=== PATIENT | male | born 1985 | race Caucasian/White ===

== ENCOUNTER 2018-05-26 07:04 | Emergency (ER) | payer OTHER ==
[2018-05-26 07:10] VITALS: TEMP 98.2; BMI 40.6
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
[2018-05-26] MEDS ORDERED: guaiFENesin 600 MG TABLET.ER (FP) PO STA (07:35)
[2018-05-26] MEDS ORDERED: BUPIVACAINE HCL/PF (5 MG/ML) 30 ML VIAL IJ STA (07:40)
[2018-05-26] MEDS ORDERED: METOCLOPRAMIDE HCL 10 MG TABLET (FP) PO ONE ×2 (07:40→07:51)
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
[2018-05-26] MEDS ORDERED: BUPIVACAINE HCL/PF 0.5% (5MG/ML) 10 ML VIAL ONE (07:50)
[2018-05-26 08:11] LABS: BASO % 0.6 % (0-2.0); EOS % 0.8 % (0-4.5); HEMATOCRIT 39.9 % (35.4-49); MCH 28.1 pg (25.7-33.7); MCHC 32.7 g/dl (32.0-35.9); MEAN CELL VOLUME 85.7 fl (80-96); MEAN PLT VOLUME 7.6 fl (7.5-11.1); MONO % 8.2 % (3.8-10.2); NEUT % 78.4 % (42.8-82.8); PLATELET COUNT 381 K/MM3 (134-434); RBC 4.65 M/mm3 (4.00-5.60); RDW 12.6 % (11.9-15.9); WHITE BLOOD COUNT 15.6 K/mm3 (4.0-10.0)
[2018-05-26 08:38] LABS: ALBUMIN 3.3 g/dl (3.4-5.0); ALK PHOS 91 U/L (45-117); ANION GAP 9 MMOL/L (8-16); BILIRUBIN,TOTAL 0.5 mg/dL (0.2-1); BLOOD UREA NITROGEN 11 mg/dL (7-18); CALCIUM 8.5 mg/dL (8.5-10.1); CHLORIDE 108 mmol/L (98-107); CO2 23 mmol/L (21-32); CREATININE 1.1 mg/dL (0.55-1.3); GLUCOSE,RANDOM 111 mg/dL (74-106); POTASSIUM 3.7 mmol/L (3.5-5.1); SGOT/AST 29 U/L (15-37); SGPT/ALT 35 U/L (13-61); SODIUM 140 mmol/L (136-145); TOT PROT 7.4 g/dl (6.4-8.2)
[2018-05-26] MEDS ORDERED: KETOROLAC TROMETHAMINE 30 MG/1 ML VIAL IVPUSH ONE (11:18)
[2018-05-26] MEDS ORDERED: KETOROLAC TROMETHAMINE 30 MG/1 ML VIAL ONE (11:44)
[2018-05-26 11:57] VITALS: BP 128/75; PULSE 17
== END 2018-05-26 11:53 | disposition home or self-care (01) ==
LOC: JER 07:04
PROC: 3E0 Administration, Physiological Systems and Anatomical Regions, Introduction (ICD-10-PCS; principal; 2018-05-26)
DX: R51 Headache (principal)
CPT/HCPCS: 36415; 70470-TC; 80053; 80307; 85025; 99282-25

== ENCOUNTER 2022-06-10 11:25 | Inpatient (IN) | payer OTHER ==
[2022-06-10 11:47] VITALS: BMI 56.2
[2022-06-10] MEDS ORDERED: ACETAMINOPHEN 1000 MG/100 ML BAG IVPB ONE (12:57)
[2022-06-10] MEDS ORDERED: ACETAMINOPHEN INJECTION 100 ML IVPB ONE ×2 (13:33→20:15)
[2022-06-10 13:48] LABS: BASO % 0.8 % (0-2.0); EOS % 0.3 % (0-4.5); HEMATOCRIT 40.8 % (35.4-49); HEMOGLOBIN 12.9 GM/dL (11.7-16.9); LYMPH % 6.6 % (8-40); MCH 26.2 pg (25.7-33.7); MCHC 31.5 g/dl (32.0-35.9); MEAN CELL VOLUME 82.9 fl (80-96); MEAN PLT VOLUME 7.7 fl (7.5-11.1); MONO % 5.4 % (3.8-10.2); NEUT % 86.9 % (42.8-82.8); PLATELET COUNT 376 10^3/uL (134-434); RBC 4.92 M/mm3 (4.00-5.60); RDW 17.3 % (11.9-15.9); WHITE BLOOD COUNT 10.6 K/mm3 (4.0-10.0)
[2022-06-10 14:06] LABS: INR 1.52 (0.83-1.09); PROTHROMBIN TIME (PATIENT) 17.6 SEC (9.7-13.0)
[2022-06-10 14:09] LABS: ACTIVATED PTT 33.8 SECONDS (25.2-36.5)
[2022-06-10 14:12] LABS: CALCIUM 8.9 mg/dL (8.5-10.1)
[2022-06-10 14:13] LABS: BLOOD UREA NITROGEN 9.8 mg/dL (7-18)
[2022-06-10 14:16] LABS: CREATININE 1.3 mg/dL (0.55-1.3)
[2022-06-10 14:17] LABS: BILIRUBIN,TOTAL 1.6 mg/dL (0.2-1); TOT PROT 7.4 g/dl (6.4-8.2)
[2022-06-10] MEDS ORDERED: FUROSEMIDE 40 MG/4 ML INJECTABLE VIAL IVPUSH ONE ×3 (15:42→18:15)
[2022-06-10] MEDS ORDERED: FUROSEMIDE 40 MG/4 ML INJECTABLE VIAL ONE ×2 (15:54→17:51)
[2022-06-10] MEDS ORDERED: ENOXAPARIN NA (PORCINE) 40 MG/0.4 ML DISP.SYRIN SQ SCH (16:45)
[2022-06-10] MEDS ORDERED: ENOXAPARIN NA (PORCINE) 40 MG/0.4 ML DISP.SYRIN SQ ONE (18:21)
[2022-06-10 18:57] LABS: PHOSPHOROUS 3.7 mg/dL (2.5-4.9)
[2022-06-10 20:09] LABS: COCAINE, UR NEGATIVE (NEGATIVE); OPIATES, URI NEGATIVE (NEGATIVE); URINE AMPHETAMINES NEGATIVE (NEGATIVE)
[2022-06-10 20:10] LABS: PHENCYCLIDINE,URINE NEGATIVE (NEGATIVE); URINE BENZODIAZEPINES NEGATIVE (NEGATIVE)
[2022-06-10 20:14] LABS: METHADONE, UR NEGATIVE (NEGATIVE); URINE BARBITURATES NEGATIVE (NEGATIVE)
[2022-06-10] MEDS: ACETAMINOPHEN 1000 MG/100 ML BAG IVPB PRN (20:24)
[2022-06-11] MEDS ORDERED: ACETAMINOPHEN INJECTION 100 ML IVPB ONE ×2 (02:44→09:43)
[2022-06-11] MEDS: ACETAMINOPHEN 1000 MG/100 ML BAG IVPB PRN ×3 (02:53→17:06)
[2022-06-11 06:49] LABS: BASO % 0.9 % (0-2.0); EOS % 0.8 % (0-4.5); HEMATOCRIT 34.2 % (35.4-49); HEMOGLOBIN 11.1 GM/dL (11.7-16.9); LYMPH % 10.7 % (8-40); MCH 26.7 pg (25.7-33.7); MCHC 32.5 g/dl (32.0-35.9); MEAN CELL VOLUME 82.1 fl (80-96); MONO % 8.1 % (3.8-10.2); NEUT % 79.5 % (42.8-82.8); PLATELET COUNT 337 10^3/uL (134-434); RBC 4.16 M/mm3 (4.00-5.60); RDW 17.6 % (11.9-15.9); WHITE BLOOD COUNT 9.1 K/mm3 (4.0-10.0)
[2022-06-11 07:00] LABS: CALCIUM 8.4 mg/dL (8.5-10.1)
[2022-06-11 07:01] LABS: BLOOD UREA NITROGEN 9.6 mg/dL (7-18); MAGNESIUM 1.8 mg/dL (1.8-2.4)
[2022-06-11 07:04] LABS: CREATININE 1.2 mg/dL (0.55-1.3)
[2022-06-11] MEDS ORDERED: KCL 10 MEQ IVPB 10 MEQ/100 ML INFUS.BAG IVPB SCH (07:30)
[2022-06-11] MEDS: FUROSEMIDE 40 MG/4 ML INJECTABLE VIAL IVPUSH SCH (09:41)
[2022-06-11] MEDS: ENOXAPARIN NA (PORCINE) 40 MG/0.4 ML DISP.SYRIN SQ SCH ×2 (09:41→21:39)
[2022-06-11] MEDS ORDERED: FUROSEMIDE 40 MG/4 ML INJECTABLE VIAL ONE (09:43)
[2022-06-11] MEDS ORDERED: ENOXAPARIN NA (PORCINE) 40 MG/0.4 ML DISP.SYRIN SQ ONE (09:43)
[2022-06-11] MEDS ORDERED: KCL 10 MEQ IVPB 30 MEQ/300 ML INFUS.BAG IVPB ONE (09:44)
[2022-06-11] MEDS ORDERED: POTASSIUM CHLORIDE TABS 20 MEQ TABLET.ER (FP) PO ONE ×3 (09:52→17:00)
[2022-06-11] MEDS ORDERED: MAGNESIUM SULF 50% (8.12 MEQ/2 ML-1 GM VIAL) IVPB ONE (10:00)
[2022-06-11] MEDS ORDERED: MAGNESIUM 1GM/D5W - 1 GM/100 ML IVPB IVPB ONE (10:34)
[2022-06-11] MEDS ORDERED: MAGNESIUM SULFATE IN WATER 2 GM/50 ML IVPB IVPB ONE (10:44)
[2022-06-11] MEDS ORDERED: MAGNESIUM 2GM/50ML STERILE WATER IVPB IVPB ONE (10:45)
[2022-06-11] MEDS ORDERED: ALBUTEROL SO4 HFA INHALER IH PRN (13:58)
[2022-06-11] MEDS ORDERED: FUROSEMIDE 40 MG/4 ML INJECTABLE VIAL IVPUSH ONE (16:35)
[2022-06-11] MEDS: MINERAL OIL/PET HY-PHL TOPICAL OINTMENT 454 GM JAR TP SCH (21:39)
[2022-06-12] MEDS: ACETAMINOPHEN 1000 MG/100 ML BAG IVPB PRN (00:40)
[2022-06-12 07:32] LABS: HEMATOCRIT 36.6 % (35.4-49); HEMOGLOBIN 11.7 GM/dL (11.7-16.9); MCH 26.7 pg (25.7-33.7); MCHC 32.1 g/dl (32.0-35.9); MEAN CELL VOLUME 83.2 fl (80-96); MEAN PLT VOLUME 7.6 fl (7.5-11.1); PLATELET COUNT 343 10^3/uL (134-434); RDW 17.8 % (11.9-15.9); WHITE BLOOD COUNT 8.5 K/mm3 (4.0-10.0)
[2022-06-12 08:00] LABS: ALBUMIN 2.8 g/dl (3.4-5.0); BLOOD UREA NITROGEN 10.5 mg/dL (7-18); CALCIUM 8.5 mg/dL (8.5-10.1)
[2022-06-12 08:03] LABS: CREATININE 1.3 mg/dL (0.55-1.3)
[2022-06-12 08:05] LABS: BILIRUBIN,TOTAL 1.6 mg/dL (0.2-1); TOT PROT 6.9 g/dl (6.4-8.2)
[2022-06-12] MEDS: ENOXAPARIN NA (PORCINE) 40 MG/0.4 ML DISP.SYRIN SQ SCH ×2 (09:46→21:22)
[2022-06-12] MEDS: FUROSEMIDE 40 MG/4 ML INJECTABLE VIAL IVPUSH SCH ×2 (09:46→15:42)
[2022-06-12] MEDS: MINERAL OIL/PET HY-PHL TOPICAL OINTMENT 454 GM JAR TP SCH ×3 (10:00→21:21)
[2022-06-12] MEDS ORDERED: FUROSEMIDE 40 MG/4 ML INJECTABLE VIAL IVPUSH SCH ×2 (14:00)
[2022-06-12] MEDS: PANTOPRAZOLE 40 MG TABLET PO SCH (15:42)
[2022-06-12] MEDS ORDERED: oxyCODONE HCL 5 MG TABLET PO ONE (20:48)
[2022-06-13] MEDS: FUROSEMIDE 40 MG/4 ML INJECTABLE VIAL IVPUSH SCH ×4 (06:31→15:43)
[2022-06-13] MEDS: ENOXAPARIN NA (PORCINE) 40 MG/0.4 ML DISP.SYRIN SQ SCH ×2 (09:24→21:28)
[2022-06-13] MEDS: PANTOPRAZOLE 40 MG TABLET PO SCH (09:24)
[2022-06-13] MEDS: MINERAL OIL/PET HY-PHL TOPICAL OINTMENT 454 GM JAR TP SCH ×2 (09:25→21:28)
[2022-06-13] MEDS: ACETAMINOPHEN 1000 MG/100 ML BAG IVPB PRN ×2 (12:20→20:42)
[2022-06-13] MEDS: FAMOTIDINE 20 MG TABLET PO SCH (12:20)
[2022-06-13 13:10] LABS: CALCIUM 8.9 mg/dL (8.5-10.1)
[2022-06-13 13:14] LABS: CREATININE 1.2 mg/dL (0.55-1.3)
[2022-06-13] MEDS ORDERED: POTASSIUM CHLORIDE TABS 20 MEQ TABLET.ER (FP) PO ONE (14:00)
[2022-06-13] MEDS: CARVEDILOL 3.125 MG TABLET (FP) PO SCH (21:28)
[2022-06-14] MEDS: FUROSEMIDE 40 MG/4 ML INJECTABLE VIAL IVPUSH SCH ×3 (06:40→15:46)
[2022-06-14 08:04] LABS: BLOOD UREA NITROGEN 11.9 mg/dL (7-18)
[2022-06-14 08:07] LABS: CALCIUM 8.5 mg/dL (8.5-10.1); CREATININE 1.2 mg/dL (0.55-1.3)
[2022-06-14 08:08] LABS: MAGNESIUM 1.8 mg/dL (1.8-2.4)
[2022-06-14] MEDS: ENOXAPARIN NA (PORCINE) 40 MG/0.4 ML DISP.SYRIN SQ SCH ×2 (09:10→21:10)
[2022-06-14] MEDS: CARVEDILOL 3.125 MG TABLET (FP) PO SCH ×2 (09:11→21:10)
[2022-06-14] MEDS: MINERAL OIL/PET HY-PHL TOPICAL OINTMENT 454 GM JAR TP SCH ×2 (09:11→21:11)
[2022-06-14] MEDS: FAMOTIDINE 20 MG TABLET PO SCH (09:11)
[2022-06-14] MEDS: PANTOPRAZOLE 40 MG TABLET PO SCH (09:11)
[2022-06-14] MEDS ORDERED: POTASSIUM CHLORIDE TABS 20 MEQ TABLET.ER (FP) PO ONE (09:34)
[2022-06-14] MEDS ORDERED: MAGNESIUM 1GM/D5W 100ML - 100 ML IVPB IVPB ONE (09:44)
[2022-06-14] MEDS ORDERED: ACETAMINOPHEN 1000 MG/100 ML BAG IVPB ONE (21:09)
[2022-06-15] MEDS: FUROSEMIDE 40 MG/4 ML INJECTABLE VIAL IVPUSH SCH ×2 (06:56→13:52)
[2022-06-15 08:31] LABS: HEMATOCRIT 37.3 % (35.4-49); HEMOGLOBIN 11.8 GM/dL (11.7-16.9); MCH 26.5 pg (25.7-33.7); MCHC 31.6 g/dl (32.0-35.9); MEAN PLT VOLUME 8.2 fl (7.5-11.1); PLATELET COUNT 343 10^3/uL (134-434); RBC 4.44 M/mm3 (4.00-5.60); RDW 18.2 % (11.9-15.9)
[2022-06-15 09:13] LABS: ALBUMIN 2.9 g/dl (3.4-5.0); CALCIUM 8.8 mg/dL (8.5-10.1); MAGNESIUM 1.9 mg/dL (1.8-2.4)
[2022-06-15 09:14] LABS: BLOOD UREA NITROGEN 15.9 mg/dL (7-18)
[2022-06-15 09:16] LABS: CREATININE 1.3 mg/dL (0.55-1.3); PHOSPHOROUS 4.3 mg/dL (2.5-4.9)
[2022-06-15 09:18] LABS: BILIRUBIN,TOTAL 1.3 mg/dL (0.2-1); TOT PROT 7.1 g/dl (6.4-8.2)
[2022-06-15] MEDS: PANTOPRAZOLE 40 MG TABLET PO SCH (10:40)
[2022-06-15] MEDS: FAMOTIDINE 20 MG TABLET PO SCH (10:40)
[2022-06-15] MEDS: CARVEDILOL 3.125 MG TABLET (FP) PO SCH ×2 (10:40→22:05)
[2022-06-15] MEDS: ENOXAPARIN NA (PORCINE) 40 MG/0.4 ML DISP.SYRIN SQ SCH ×2 (10:40→22:05)
[2022-06-15] MEDS: MINERAL OIL/PET HY-PHL TOPICAL OINTMENT 454 GM JAR TP SCH ×3 (10:41→23:10)
[2022-06-15] MEDS: POTASSIUM CHLORIDE TABS 20 MEQ TABLET.ER (FP) PO SCH (12:32)
[2022-06-15] MEDS: ACETAMINOPHEN 1000 MG/100 ML BAG IVPB PRN ×2 (14:04→21:57)
[2022-06-15] MEDS ORDERED: MAGNESIUM SULF 50% (8.12 MEQ/2 ML-1 GM VIAL) IVPB ONE (18:30)
[2022-06-15] MEDS ORDERED: FAMOTIDINE 20 MG TABLET PO PRN (18:47)
[2022-06-16] MEDS: FUROSEMIDE 40 MG/4 ML INJECTABLE VIAL IVPUSH SCH ×2 (06:24→13:26)
[2022-06-16 08:42] LABS: HEMOGLOBIN 11.3 GM/dL (11.7-16.9); MCH 26.8 pg (25.7-33.7); MCHC 32.4 g/dl (32.0-35.9); MEAN CELL VOLUME 82.8 fl (80-96); MEAN PLT VOLUME 7.9 fl (7.5-11.1); PLATELET COUNT 316 10^3/uL (134-434); RBC 4.22 M/mm3 (4.00-5.60); RDW 18.1 % (11.9-15.9); WHITE BLOOD COUNT 8.5 K/mm3 (4.0-10.0)
[2022-06-16 09:17] LABS: ALBUMIN 2.8 g/dl (3.4-5.0); BLOOD UREA NITROGEN 16.4 mg/dL (7-18); CALCIUM 8.6 mg/dL (8.5-10.1); MAGNESIUM 2.1 mg/dL (1.8-2.4)
[2022-06-16] MEDS: POTASSIUM CHLORIDE TABS 20 MEQ TABLET.ER (FP) PO SCH (09:18)
[2022-06-16] MEDS: ENOXAPARIN NA (PORCINE) 40 MG/0.4 ML DISP.SYRIN SQ SCH ×2 (09:18→22:01)
[2022-06-16] MEDS: CARVEDILOL 3.125 MG TABLET (FP) PO SCH (09:19)
[2022-06-16] MEDS: MINERAL OIL/PET HY-PHL TOPICAL OINTMENT 454 GM JAR TP SCH ×2 (09:19→21:59)
[2022-06-16 09:20] LABS: CREATININE 1.2 mg/dL (0.55-1.3)
[2022-06-16 09:21] LABS: BILIRUBIN,TOTAL 1.2 mg/dL (0.2-1); TOT PROT 6.8 g/dl (6.4-8.2)
[2022-06-16] MEDS ORDERED: ACETAMINOPHEN 325 MG TABLET (FP) PO PRN (18:00)
[2022-06-16] MEDS ORDERED: ALBUTEROL SO4 HFA INHALER IH PRN (19:09)
[2022-06-16] MEDS: CARVEDILOL 6.25 MG TABLET (FP) PO SCH (22:00)
[2022-06-17] MEDS: FUROSEMIDE 40 MG/4 ML INJECTABLE VIAL IVPUSH SCH ×2 (06:43→13:17)
[2022-06-17 09:13] LABS: BLOOD UREA NITROGEN 18.2 mg/dL (7-18); CALCIUM 8.9 mg/dL (8.5-10.1)
[2022-06-17 09:17] LABS: CREATININE 1.2 mg/dL (0.55-1.3)
[2022-06-17] MEDS: POTASSIUM CHLORIDE TABS 20 MEQ TABLET.ER (FP) PO SCH (10:35)
[2022-06-17] MEDS: CARVEDILOL 6.25 MG TABLET (FP) PO SCH ×2 (10:35→21:15)
[2022-06-17] MEDS: ENOXAPARIN NA (PORCINE) 40 MG/0.4 ML DISP.SYRIN SQ SCH ×2 (10:35→21:15)
[2022-06-17] MEDS: MINERAL OIL/PET HY-PHL TOPICAL OINTMENT 454 GM JAR TP SCH ×2 (10:36→21:15)
[2022-06-17] MEDS ORDERED: FUROSEMIDE 40 MG/4 ML INJECTABLE VIAL IVPUSH ONE ×2 (18:32→19:45)
[2022-06-17] MEDS ORDERED: FUROSEMIDE 40 MG/4 ML INJECTABLE VIAL ONE (19:41)
[2022-06-18] MEDS: FUROSEMIDE 40 MG/4 ML INJECTABLE VIAL IVPUSH SCH ×2 (05:09→14:31)
[2022-06-18] MEDS: ENOXAPARIN NA (PORCINE) 40 MG/0.4 ML DISP.SYRIN SQ SCH ×2 (10:03→21:57)
[2022-06-18] MEDS: POTASSIUM CHLORIDE TABS 20 MEQ TABLET.ER (FP) PO SCH (10:03)
[2022-06-18] MEDS: CARVEDILOL 6.25 MG TABLET (FP) PO SCH ×2 (10:04→21:57)
[2022-06-18] MEDS: MINERAL OIL/PET HY-PHL TOPICAL OINTMENT 454 GM JAR TP SCH ×2 (10:04→21:59)
[2022-06-18] MEDS: SACUBITRIL/VALSARTAN 24 MG-26 MG TABLET PO SCH ×2 (11:13→21:57)
[2022-06-18 12:25] LABS: HEMATOCRIT 33.6 % (35.4-49); HEMOGLOBIN 11.2 GM/dL (11.7-16.9); MCH 27.4 pg (25.7-33.7); MCHC 33.4 g/dl (32.0-35.9); MEAN CELL VOLUME 81.8 fl (80-96); MEAN PLT VOLUME 7.8 fl (7.5-11.1); PLATELET COUNT 315 10^3/uL (134-434); WHITE BLOOD COUNT 8.7 K/mm3 (4.0-10.0)
[2022-06-18 12:45] LABS: CALCIUM 8.7 mg/dL (8.5-10.1)
[2022-06-18 12:46] LABS: ALBUMIN 2.9 g/dl (3.4-5.0); BLOOD UREA NITROGEN 18.2 mg/dL (7-18); CALCIUM 8.8 mg/dL (8.5-10.1)
[2022-06-18 12:47] LABS: BLOOD UREA NITROGEN 18.2 mg/dL (7-18)
[2022-06-18 12:49] LABS: CREATININE 1.1 mg/dL (0.55-1.3)
[2022-06-18 12:50] LABS: BILIRUBIN,TOTAL 1.2 mg/dL (0.2-1); CREATININE 1.1 mg/dL (0.55-1.3); TOT PROT 7.3 g/dl (6.4-8.2)
[2022-06-18] MEDS ORDERED: FUROSEMIDE 40 MG/4 ML INJECTABLE VIAL IVPUSH ONE (18:33)
[2022-06-19] MEDS: FUROSEMIDE 40 MG/4 ML INJECTABLE VIAL IVPUSH SCH ×2 (06:02→15:31)
[2022-06-19] MEDS: CARVEDILOL 6.25 MG TABLET (FP) PO SCH ×2 (10:04→21:41)
[2022-06-19] MEDS: SACUBITRIL/VALSARTAN 24 MG-26 MG TABLET PO SCH ×2 (10:04→21:41)
[2022-06-19] MEDS: POTASSIUM CHLORIDE TABS 20 MEQ TABLET.ER (FP) PO SCH (10:04)
[2022-06-19] MEDS: MINERAL OIL/PET HY-PHL TOPICAL OINTMENT 454 GM JAR TP SCH ×2 (10:05→21:41)
[2022-06-19] MEDS: ENOXAPARIN NA (PORCINE) 40 MG/0.4 ML DISP.SYRIN SQ SCH ×2 (10:05→21:41)
[2022-06-19 11:01] LABS: BLOOD UREA NITROGEN 18.3 mg/dL (7-18); CALCIUM 8.8 mg/dL (8.5-10.1)
[2022-06-19 11:05] LABS: CREATININE 1.2 mg/dL (0.55-1.3)
[2022-06-19] MEDS ORDERED: FUROSEMIDE 40 MG/4 ML INJECTABLE VIAL IVPUSH ONE (18:33)
[2022-06-20] MEDS: FUROSEMIDE 40 MG/4 ML INJECTABLE VIAL IVPUSH SCH ×2 (06:21→13:19)
[2022-06-20] MEDS: SACUBITRIL/VALSARTAN 24 MG-26 MG TABLET PO SCH ×2 (09:24→22:05)
[2022-06-20] MEDS: MINERAL OIL/PET HY-PHL TOPICAL OINTMENT 454 GM JAR TP SCH ×2 (09:24→21:45)
[2022-06-20] MEDS: POTASSIUM CHLORIDE TABS 20 MEQ TABLET.ER (FP) PO SCH (09:24)
[2022-06-20] MEDS: ENOXAPARIN NA (PORCINE) 40 MG/0.4 ML DISP.SYRIN SQ SCH ×2 (09:24→21:45)
[2022-06-20] MEDS: CARVEDILOL 6.25 MG TABLET (FP) PO SCH ×2 (09:24→21:45)
[2022-06-20 10:26] LABS: CALCIUM 8.9 mg/dL (8.5-10.1)
[2022-06-20 10:27] LABS: BLOOD UREA NITROGEN 15.8 mg/dL (7-18)
[2022-06-20 10:30] LABS: CREATININE 1.1 mg/dL (0.55-1.3)
[2022-06-20 14:27] VITALS: RESP 18
[2022-06-21] MEDS: FUROSEMIDE 40 MG/4 ML INJECTABLE VIAL IVPUSH SCH ×2 (06:47→13:50)
[2022-06-21] MEDS: POTASSIUM CHLORIDE TABS 20 MEQ TABLET.ER (FP) PO SCH (09:55)
[2022-06-21] MEDS: CARVEDILOL 6.25 MG TABLET (FP) PO SCH ×2 (09:55→21:44)
[2022-06-21] MEDS: MINERAL OIL/PET HY-PHL TOPICAL OINTMENT 454 GM JAR TP SCH ×2 (09:55→21:44)
[2022-06-21] MEDS: ENOXAPARIN NA (PORCINE) 40 MG/0.4 ML DISP.SYRIN SQ SCH ×2 (09:55→21:44)
[2022-06-21] MEDS: SACUBITRIL/VALSARTAN 24 MG-26 MG TABLET PO SCH ×2 (09:55→21:44)
[2022-06-21 11:41] LABS: BLOOD UREA NITROGEN 13.2 mg/dL (7-18); CALCIUM 8.8 mg/dL (8.5-10.1)
[2022-06-21] MEDS ORDERED: FUROSEMIDE 40 MG/4 ML INJECTABLE VIAL IVPUSH ONE (20:00)
[2022-06-22] MEDS: FUROSEMIDE 40 MG/4 ML INJECTABLE VIAL IVPUSH SCH ×2 (06:23→13:54)
[2022-06-22 10:00] LABS: HEMATOCRIT 36.1 % (35.4-49); HEMOGLOBIN 11.8 GM/dL (11.7-16.9); MCH 26.9 pg (25.7-33.7); MCHC 32.6 g/dl (32.0-35.9); MEAN CELL VOLUME 82.5 fl (80-96); PLATELET COUNT 391 10^3/uL (134-434); RBC 4.38 M/mm3 (4.00-5.60); RDW 17.3 % (11.9-15.9); WHITE BLOOD COUNT 7.8 K/mm3 (4.0-10.0)
[2022-06-22 10:11] LABS: ALBUMIN 3.1 g/dl (3.4-5.0); BLOOD UREA NITROGEN 16.2 mg/dL (7-18); MAGNESIUM 2.3 mg/dL (1.8-2.4)
[2022-06-22 10:14] LABS: CREATININE 1.2 mg/dL (0.55-1.3); PHOSPHOROUS 3.9 mg/dL (2.5-4.9)
[2022-06-22 10:16] LABS: TOT PROT 7.7 g/dl (6.4-8.2)
[2022-06-22] MEDS: POTASSIUM CHLORIDE TABS 20 MEQ TABLET.ER (FP) PO SCH (10:50)
[2022-06-22] MEDS: CARVEDILOL 6.25 MG TABLET (FP) PO SCH ×2 (10:50→21:43)
[2022-06-22] MEDS: ENOXAPARIN NA (PORCINE) 40 MG/0.4 ML DISP.SYRIN SQ SCH ×2 (10:50→21:43)
[2022-06-22] MEDS: MINERAL OIL/PET HY-PHL TOPICAL OINTMENT 454 GM JAR TP SCH ×2 (10:50→21:45)
[2022-06-22] MEDS: SACUBITRIL/VALSARTAN 24 MG-26 MG TABLET PO SCH ×2 (10:51→21:43)
[2022-06-22] MEDS ORDERED: FUROSEMIDE 40 MG/4 ML INJECTABLE VIAL IVPUSH ONE (20:00)
[2022-06-22] MEDS: FAMOTIDINE 20 MG TABLET PO PRN (21:45)
[2022-06-23] MEDS: FUROSEMIDE 40 MG/4 ML INJECTABLE VIAL IVPUSH SCH ×2 (07:37→13:10)
[2022-06-23] MEDS: POTASSIUM CHLORIDE TABS 20 MEQ TABLET.ER (FP) PO SCH (09:23)
[2022-06-23] MEDS: SACUBITRIL/VALSARTAN 24 MG-26 MG TABLET PO SCH ×2 (09:25→21:42)
[2022-06-23] MEDS: CARVEDILOL 6.25 MG TABLET (FP) PO SCH ×2 (09:25→21:42)
[2022-06-23] MEDS: FAMOTIDINE 20 MG TABLET PO PRN (09:26)
[2022-06-23] MEDS: MINERAL OIL/PET HY-PHL TOPICAL OINTMENT 454 GM JAR TP SCH ×2 (09:27→21:42)
[2022-06-23] MEDS: ENOXAPARIN NA (PORCINE) 40 MG/0.4 ML DISP.SYRIN SQ SCH ×2 (10:00→21:42)
[2022-06-23 10:34] LABS: HEMATOCRIT 36.1 % (35.4-49); HEMOGLOBIN 11.6 GM/dL (11.7-16.9); MCH 26.7 pg (25.7-33.7); MCHC 32.3 g/dl (32.0-35.9); MEAN CELL VOLUME 82.7 fl (80-96); MEAN PLT VOLUME 8.1 fl (7.5-11.1); PLATELET COUNT 378 10^3/uL (134-434); RBC 4.37 M/mm3 (4.00-5.60); RDW 17.6 % (11.9-15.9); WHITE BLOOD COUNT 7.6 K/mm3 (4.0-10.0)
[2022-06-23 10:56] LABS: BLOOD UREA NITROGEN 19.2 mg/dL (7-18)
[2022-06-23 10:58] LABS: CALCIUM 8.7 mg/dL (8.5-10.1)
[2022-06-23 10:59] LABS: MAGNESIUM 2.3 mg/dL (1.8-2.4); PHOSPHOROUS 3.9 mg/dL (2.5-4.9)
[2022-06-23 11:00] LABS: CREATININE 1.1 mg/dL (0.55-1.3)
[2022-06-24 05:30] VITALS: BP 120/60; PULSE 75; TEMP 97.8
[2022-06-24] MEDS: FUROSEMIDE 40 MG/4 ML INJECTABLE VIAL IVPUSH SCH (06:30)
== END 2022-06-24 06:40 | disposition short-term general hospital (02) | DRG 194 ==
LOC: JER 11:25 → JERBED 14:50 → J4W 06-11 13:22 → J6S 06-16 10:51
PROVIDERS: ADMIT Internal Medicine; ATTEND Internal Medicine
DX: I11.0 Hypertensive heart disease with heart failure (principal); N50.89 Other specified disorders of the male genital organs; G47.33 Obstructive sleep apnea (adult) (pediatric); M79.89 Other specified soft tissue disorders; E66.01 Morbid (severe) obesity due to excess calories; Z68.43 Body mass index [BMI] 50.0-59.9, adult; F17.200 Nicotine dependence, unspecified, uncomplicated; I50.23 Acute on chronic systolic (congestive) heart failure; F12.10 Cannabis abuse, uncomplicated; I47.20 Ventricular tachycardia, unspecified
CPT/HCPCS: 0241U-QW; 36415; 71045-TC-FY; 76870-TC; 80048; 80053; 80061; 80307; 82962; 83036; 83735; 83880; 84100; 84439; 84443; 84484; 85025; 85027; 85610; 85730; 86140; 93005; 93010; 93306-TC; 93970-TC; 97116-GP; 97161-GP; 99285-25; C9803-CS; U0003; U0005

== ENCOUNTER 2023-08-18 16:05 | Emergency (ER) | payer OTHER ==
[2023-08-18 16:18] VITALS: TEMP 98.3; BMI 43.7
[2023-08-18 17:46] LABS: BASO % 0.6 % (0-2.0); EOS % 0.3 % (0-4.5); HEMATOCRIT 45.6 % (35.4-49); HEMOGLOBIN 15.3 GM/dL (11.7-16.9); LYMPH % 7.9 % (8-40); MCH 28.9 pg (25.7-33.7); MCHC 33.5 g/dl (32.0-35.9); MEAN CELL VOLUME 86.5 fl (80-96); MEAN PLT VOLUME 7.8 fl (7.5-11.1); MONO % 4.5 % (3.8-10.2); NEUT % 86.7 % (42.8-82.8); PLATELET COUNT 312 10^3/uL (134-434); RBC 5.27 M/mm3 (4.00-5.60); RDW 13.4 % (11.9-15.9); WHITE BLOOD COUNT 16.4 K/mm3 (4.0-10.0)
[2023-08-18] MEDS ORDERED: SACUBITRIL/VALSARTAN 24 MG-26 MG TABLET ONE (17:46)
[2023-08-18] MEDS: SACUBITRIL/VALSARTAN 24 MG-26 MG TABLET PO ONE (17:50)
[2023-08-18] MEDS: ASPIRIN 81 MG CHEWABLE TABLETS PO ONE (17:59)
[2023-08-18 18:03] LABS: CHLORIDE 105 mmol/L (98-107); SODIUM 133 mmol/L (136-145)
[2023-08-18 18:06] LABS: BLOOD UREA NITROGEN 22.4 mg/dL (7-18); CALCIUM 9.2 mg/dL (8.5-10.1); CO2 25 mmol/L (21-32); GLUCOSE,RANDOM 71 mg/dL (74-106)
[2023-08-18 18:08] LABS: SGOT/AST 96 U/L (15-37); SGPT/ALT 29 U/L (13-61)
[2023-08-18 18:09] LABS: CREATININE 1.5 mg/dL (0.55-1.3)
[2023-08-18 18:11] LABS: ALK PHOS 110 U/L (45-117); BILIRUBIN,TOTAL 0.5 mg/dL (0.2-1)
[2023-08-18 18:13] LABS: N-TERMINAL BNP 332.6 pg/ml (5-125)
[2023-08-18 18:20] LABS: ANION GAP 2 mmol/L (4-13); POTASSIUM 6.5 mmol/L (3.5-5.1)
[2023-08-18] MEDS ORDERED: LIDOCAINE 4% PATCH TP ONE (18:23)
[2023-08-18 18:28] VITALS: BP 115/78; PULSE 109; RESP 20
[2023-08-18] MEDS: LIDOCAINE 5% TOPICAL PATCH TP ONE (18:28)
[2023-08-18] MEDS ORDERED: LIDOCAINE PATCH REMOVAL MC SCH (22:00)
== END 2023-08-18 20:39 | disposition left against medical advice (07) ==
LOC: JER 16:05
DX: R07.9 Chest pain, unspecified (principal); R06.02 Shortness of breath; R61 Generalized hyperhidrosis
CPT/HCPCS: 36415; 80053; 82962; 83880; 84484; 85025; 93005; 93010; 99284-25